=== PATIENT | male | born 1940 | race Caucasian/White ===

== ENCOUNTER 2021-05-12 11:47 | Day surgery (SDC) | payer MEDICARE, OTHER ==
[2021-05-12] VITALS (7 sets, daily range): BP systolic 150–179; BP diastolic 63–79; PULSE 53–75; TEMP 97.7–97.8
[~2021-05-12] VITALS: Ht 175.3 cm; Wt 72.7 kg
[~2021-05-12 11:47] MED LIST: ANTIVERT 25MG25 MG PO; CENTRUM SILVER1 CTB PO; COUMADIN4 MG PO; FIBER TABLETS1 TAB PO; FIBERCON PO; LOVENOX 6060 MG/0.6 SQ; OR USE ONLY TIMO OP; PRILOSEC 20MG20 MG PO; SUPER B COMPLEX1 TA2 PO; VITAMIN D31000 IU PO; XANAX 0.5MG0.5 MG PO
--- NOTE | 2021-05-12 13:51 | NUR ---
Initial visit; Patient and his thanked Service Dispatcher for offering encouragement and prayer prior to his surgical procedure.
[2021-05-12] MEDS ORDERED: NORCO 325 MG-51 TAB PO (15:22)
--- NOTE | 2021-05-12 18:10 | NUR ---
1528 Pt brought from OR to [place] [id number] via cart and MAUREEN Peterson, and TENSILE TESTER assisting. Monitors on and alarms set. Call light within reach. present in room. Report received. Pt requests water for now. Pt states pain as "knowing I've had surgery" and no nausea. 1545 Pt remains drinking water well. Pain rated at 6 out of 10. No desired intervention at this time. 1615 Pt states pain now at a 7 out of 10 and wishes for some medication to treat the pain. Pt also requests coffee and muffin. 1630 After pain medicine, pt rates pain at 5 out of 10 and progressing better. Pt took muffin and coffee well. 1700 Pt rating pain now very low and very tolerable. 1755 Discharge instructions given to pt and . All questions answered to their satisfaction. Handed to them are a discharge folder with a thank you card and discharge information. 1810 Pt transferred out of hospital via wheelchair and MAUREEN Reyes assist, to private vehicle driven by .
[2021-05-12] MEDS ORDERED: COUMADIN4 MG PO (18:47)
[2021-05-12] MEDS ORDERED: KLONOPIN 0.5MG0.5 MG PO (18:48)
[2021-05-12] MEDS ORDERED: MIRAPEX0.5 MG PO (18:51)
[2021-05-12] MEDS ORDERED: PRESERVISION1 SGL PO (18:53)
[2021-05-12] MEDS ORDERED: TIMOLOL MALEATE5 M1 OP (18:55)
[2021-05-12] MEDS ORDERED: ELIDEL1% TOP (18:56)
== END 2021-05-12 18:10 | disposition home or self-care (01) ==
LOC: SDCO 11:47
DX: K40.90 Unilateral inguinal hernia, without obstruction or gangrene, not specified as recurrent (principal); I87.2 Venous insufficiency (chronic) (peripheral); R42 Dizziness and giddiness; G25.81 Restless legs syndrome; K21.9 Gastro-esophageal reflux disease without esophagitis; T14.8XXA Other injury of unspecified body region, initial encounter; W57.XXXA Bitten or stung by nonvenomous insect and other nonvenomous arthropods, initial encounter; Z20.822 Contact with and (suspected) exposure to COVID-19; Z87.891 Personal history of nicotine dependence; Z79.01 Long term (current) use of anticoagulants; Z86.711 Personal history of pulmonary embolism; Z86.718 Personal history of other venous thrombosis and embolism
CPT/HCPCS: C1781; J0690; J2250; J2704; J3010; J7120

== ENCOUNTER 2022-07-05 06:42 | Observation (INO) | payer MEDICARE, OTHER ==
[~2022-07-05] VITALS: Ht 175.4 cm; Wt 64.5 kg
[~2022-07-05 06:42] MED LIST changes: +ELIDEL1% TOP; +KLONOPIN 0.5MG0.5 MG PO; +MIRAPEX0.5 MG PO; +NORCO 325 MG-51 TAB PO; +PRESERVISION1 SGL PO; +TIMOLOL MALEATE5 M1 OP
[2022-07-05 07:09] LABS: BASO % 0.4 % (0.0-2.0); EOS # 0.1 K/mm3 (0.0-0.7); EOS % 1.3 % (0.0-4.0); GRAN # 8.5 K/mm3 (1.4-6.5); GRAN % 79.9 % (42.2-75.2); HEMOGLOBIN 15.9 g/dl (13.5-18.0); LYMPH # 0.7 K/mm3 (1.2-3.4); LYMPH % 6.9 % (20.0-51.0); MEAN CELL VOLUME 89 fl (80.0-100.0); MEAN CORPUSCULAR HEMOGLOBIN 30 pg (27-31); MEAN CORPUSCULAR HGB CONC 34 g/dl (33.0-37.0); MEAN PLATELET VOLUME 9.3 fl (7.4-10.4); MONO # 1.2 K/mm3 (0.1-0.6); MONO % 11.2 % (1.7-9.3); PLATELET COUNT 259 K/mm3 (130-400); RED BLOOD COUNT 5.27 M/mm3 (4.20-5.60); REDCELL DISTRIBUTION WIDTH-CV 14.8 % (11.5-14.5)
[2022-07-05 07:11] LABS: INR 2.8 (0.8-3.0); PROTHROMBIN TIME 32.8 SECONDS (9.7-12.8)
[2022-07-05 07:26] LABS: BILIRUBIN,TOTAL 0.7 mg/dL (0.2-1.2); CALCIUM 9.8 mg/dL (8.4-10.2); CREATININE, serum 1.02 mg/dL (0.72-1.25); POTASSIUM 3.9 mmol/L (3.5-4.5); TOTAL PROTEIN 7.2 gm/dL (6.2-8.1)
[2022-07-05 07:32] LABS: TROPONIN-I 0.026 ng/mL (0.00-0.033)
[2022-07-05] MEDS ORDERED: MIRAPEX0.5 MG PO (09:08)
--- NOTE | 2022-07-05 12:05 | NUR ---
82 YEAR OLD MALE PATIENT ADMITTED TO ROOM 308. PATIENT TRANSFERED FROM ER VIA W/C ACCOMPANIED BY NURSE AND SPOUSE. PATIENT ORIENTED TO ROOM, CALL LIGHT, AND BED CONTROLS. ALERT AND ORIENTED X4. VITAL SIGNS STABLE. NO C/O PAIN OR CHEST PRESSURE REPORTED. DENIES ANY SOB, NO S/SX OF RESPIRATORY DISTRESS NOTED. SKIN CLEAN, DRY, AND INTACT. SMALL AREA OF ECZEMA TO RIGHT UPPER ARM REPORTED BY PATIENT, PATIENT STATES HE USES OINTMENT FOR THIS AT HOME, DENIES NEED FOR INTERVENTION AT THE TIME. PERIPHERAL IV ACCESS IN PLACE TO RIGHT FOREARM, SCANT BLEEDING NOTED. SUPPORT PERSON IS SPOUSE, TANA. DENIES ANY NEEDS AT THIS TIME. ADMISSION INTAKE, ASSESSMENT, AND MED REC COMPLETED. BED IN LOWEST, LOCKED POSITION, CALL LIGHT WITHIN REACH.
[2022-07-05] MEDS ORDERED: LOZOL1.25 MG PO (12:14)
[2022-07-05 13:09] VITALS: BP 151/77; PULSE 88; TEMP 97.9
[2022-07-05 15:17] VITALS: BP 154/71; PULSE 102; TEMP 97.5
--- NOTE | 2022-07-05 18:51 | NUR ---
PATIENT SITTING UP IN BED EATING DINNER. ALERT AND ORIENTED X4. VSS. NO COMPLAINTS OF PAIN AT THIS TIME. NPO AFTER MIDNIGHT FOR PROCEDURE, PATIENT AND ONCOMING RN AWARE. CALL LIGHT WITHIN REACH, BED IN LOWEST, LOCKED POSITION.
--- NOTE | 2022-07-05 19:14 | NUR ---
PATIENT SITTING UP IN BED EATING DINNER. PATIENT INQUIRES IF LAB WILL BE COMING TO DRAW MORE LABS ALL NIGHT. PATIENT STATES HE WOULD LIKE TO BE ABLE TO SLEEP TONIGHT. THIS NURSE ADVISES SHE WILL BRING HIS MEDS IN SO HE IS ABLE TO WHEN READY. PATIENT STATES APPRECIATION. PATIENT DENIES CHEST PAIN, PAIN, ANY NEEDS OR CONCERNS. PATIENT HAS CALL LIGHT WITHIN REACH AND IS ENCOURAGED TO CALL WITH ANY NEEDS. PATIENT STATES UNDERSTANDING.
[2022-07-05 19:15] VITALS: BP 158/86; PULSE 97; TEMP 97.9
[2022-07-05 23:59] VITALS: BP 132/60; PULSE 89; TEMP 97.6
[2022-07-06] VITALS (7 sets, daily range): BP systolic 124–155; BP diastolic 77–81; PULSE 85–115; TEMP 98–98.6
--- NOTE | 2022-07-06 06:18 | NUR ---
PATIENT HAS HAD AN UNEVENTFUL NIGHT. PATIENT STATED HE HAD A SOLID 5 HOURS OF SLEEP LIKE HE GETS AT HOME. PATIENT IS AWAKE SITTING IN BED WHILE NUC MED EXPLAIND THE SAMANTHA SCAN TO PATIENT. PATIENT DENIES PAIN, NEEDS OR CONCERNS AT THIS TIME. CALL LIGHT IS WITHIN PATIENT REACH.
[2022-07-06 06:26] LABS: BASO % 0.3 % (0.0-2.0); EOS # 0.1 K/mm3 (0.0-0.7); EOS % 1.3 % (0.0-4.0); GRAN # 7.9 K/mm3 (1.4-6.5); GRAN % 82.7 % (42.2-75.2); HEMATOCRIT 45.7 % (42.0-52.0); HEMOGLOBIN 15.4 g/dl (13.5-18.0); LYMPH # 0.4 K/mm3 (1.2-3.4); LYMPH % 4.5 % (20.0-51.0); MEAN CELL VOLUME 88 fl (80.0-100.0); MEAN CORPUSCULAR HEMOGLOBIN 30 pg (27-31); MEAN CORPUSCULAR HGB CONC 34 g/dl (33.0-37.0); MEAN PLATELET VOLUME 9.6 fl (7.4-10.4); MONO % 10.8 % (1.7-9.3); PLATELET COUNT 269 K/mm3 (130-400); RED BLOOD COUNT 5.18 M/mm3 (4.20-5.60); REDCELL DISTRIBUTION WIDTH-CV 14.6 % (11.5-14.5)
[2022-07-06 06:30] LABS: INR 2.3 (0.8-3.0); PROTHROMBIN TIME 26.2 SECONDS (9.7-12.8)
[2022-07-06 06:39] LABS: CALCIUM 9.6 mg/dL (8.4-10.2); CREATININE, serum 1.07 mg/dL (0.72-1.25); POTASSIUM 3.6 mmol/L (3.5-4.5)
--- NOTE | 2022-07-06 11:30 | NUR ---
PT ALERT AND ORIENTED TIMES 4 LAYING IN BED . PT ACCOMPANIED BY FAMILY MEMBER. VITALS STABLE, PT ON ROOM AIR. YVAN HOSE ON. PT DENIES PAIN OR DISCOMFORT. CALL LIGHT WITHIN REACH, NO FURTHER NEEDS.
[2022-07-06] MEDS ORDERED: COUMADIN4 MG PO (12:59)
[2022-07-06] MEDS ORDERED: MELATONIN GUMMIES PO (13:02)
[2022-07-06] MEDS ORDERED: TRIAM OI 0.1 454 TOP (13:03)
--- NOTE | 2022-07-06 14:25 | NUR ---
Leno Sewer met with patient and his , Jud to discuss discharge planning. Patient will be discharged home today to his home in [place] where he lives with Jud. Patient sees Dr. Duran for primary care. Jud provided DPOA-HC paperwork and copy was placed on the chart. BRENDAN presented [facility] form to patient who verbalized understanding and provided signature. BRENDAN placed form in chart and provided copy to patient. Discharge Plan: Home today
--- NOTE | 2022-07-06 14:55 | NUR ---
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 about ready to leave. Pt appreciated the visit Recommendation: plywood scarfer tender will follow up as needed
--- NOTE | 2022-07-06 15:55 | NUR ---
PT GIVEN DISCHARGE EDUCATION, ALL QUESTIONS ANSWERED AT THIS TIME. IV TO RIGHT FOREARM DC. PT WHEELED DOWN.
== END 2022-07-06 15:30 | disposition home or self-care (01) ==
LOC: COL.ER 06:42 → MEDICAL 09:47 → COL.ER 09:47 → MEDICAL 07-06 15:30
PROVIDERS: Emergency Medicine; ADMIT Student in an Organized Health Care Education/Training Program
DX: R07.89 Other chest pain (principal); R42 Dizziness and giddiness; K21.9 Gastro-esophageal reflux disease without esophagitis; F41.9 Anxiety disorder, unspecified; G25.81 Restless legs syndrome; I26.99 Other pulmonary embolism without acute cor pulmonale; I10 Essential (primary) hypertension; I08.1 Rheumatic disorders of both mitral and tricuspid valves; Z79.82 Long term (current) use of aspirin; Z79.899 Other long term (current) drug therapy; Z86.718 Personal history of other venous thrombosis and embolism; Z79.01 Long term (current) use of anticoagulants; Z87.891 Personal history of nicotine dependence
CPT/HCPCS: A9500; G0378; J2765; J2785; J3010; Q9967